=== PATIENT | female | born 1955 | race Caucasian/White ===

== ENCOUNTER → 2016-10-26 | Outpatient (CLI) | payer BC | LOC: CIMAGING 15:50 | PROVIDERS: ATTEND Physician Assistant Medical | DX: Z03.89 Encounter for observation for other suspected diseases and conditions ruled out (principal); I87.2 Venous insufficiency (chronic) (peripheral); M16.12 Unilateral primary osteoarthritis, left hip | CPT/HCPCS: 74000-PO ==